=== PATIENT | male | born 1980 | race African-American/Black ===

== ENCOUNTER 2018-01-20 11:04 | Inpatient (IN) | payer OTHER ==
[2018-01-20 12:40] VITALS: BMI 23.0
--- NOTE | 2018-01-20 14:53 | HP ---
CIWA Score - CIWA Score Nausea/Vomitin Muscle Tremors: 3 Anxiety: 3 Agitation: 3 Paroxysmal Sweats: 1-Minimal Palms Moist Orientation: 0-Oriented Tacttile Disturbances: 1-Very Mild Itch/Numbness Auditory Disturbances: 1-Very Mild Visual Disturbances: 0-None Headache: 2-Mild CIWA-Ar Total Score: 17 Admission ROS [facility] - HPI Chief Complaint: i need help to stop drinking alcohol,marijuana,and methamphetamine Allergies/Adverse Reactions: Allergies Allergy/AdvReac Type Severity Reaction Status Date / Time No Known Allergies Allergy Verified 01/20/18 15:00 History of Present Illness: this 37 years old male with alcohol,marijuana and methamphetamine dependene, seeking detox,withdrawal symptom,last detox [facility] 07/18/17 to 07/22/17 hiv since 2002 weight loss nicotine dependence longest period of sobriety 2 years - Ebola screening Have you traveled outside of the country in the last 21 days: No (N) Have you had contact with anyone from an Ebola affected area: No Have you been sick,other than usual withdrawal symptoms: No Do you have a fever: No - Review of Systems Constitutional: Loss of Appetite, Malaise, Night Sweats, Changes in sleep, Weakness, Unintentional Wgt. Loss EENT: reports: Nose Congestion Respiratory: reports: No Symptoms reported Cardiac: reports: No Symptoms Reported GI: reports: Nausea, Poor Appetite, Abdominal cramping : reports: No Symptoms Reported Musculoskeletal: reports: Back Pain, Muscle Pain Integumentary: reports: Dryness Neuro: reports: Headache, Tremors Endocrine: reports: No Symptoms Reported Hematology: reports: No Symptoms Reported Psychiatric: reports: No Sypmtoms Reported, Judgement Intact, Mood/Affect Appropiate, Orientated x3 Patient History - Patient Medical History Hx Anemia: No Hx Asthma: No Hx Chronic Obstructive Pulmonary Disease (COPD): No Hx Cancer: No Hx Cardiac Disorders: No Hx Hypertension: No Hx Hypercholesterolemia: No Hx Pacemaker: No HX Cerebrovascular Accident: No Hx Seizures: No Hx Diabetes: No Hx Gastrointestinal Disorders: No Hx Liver Disease: No Hx Genitourinary Disorders: No Hx Sexually Transmitted Disorders: No Hx Renal Disease (ESRD): No Hx Thyroid Disease: No Hx Human Immunodeficiency Virus (HIV): Yes (DIAGNOSED IN 2002) Hx Hepatitis C: No Hx Depression: No Hx Suicide Attempt: No Hx Bipolar Disorder: No Hx Schizophrenia: No Other Medical History: anxiety,depression,insomnia - Patient Surgical History Past Surgical History: No Hx Neurologic Surgery: No Hx Cataract Extraction: No Hx Cardiac Surgery: No Hx Lung Surgery: No Hx Breast Surgery: No Hx Breast Biopsy: No Hx Abdominal Surgery: No Hx Appendectomy: No Hx Cholecystectomy: No Hx Genitourinary Surgery: No Hx Section: No Hx Orthopedic Surgery: No Anesthesia Reaction: No - PPD History Date: 07/20/17 Results: 0 mm PPD to be Administered?: No - Smoking Cessation Smoking history: Current every day smoker Have you smoked in the past 12 months: Yes Aproximately how many cigarettes per day: 20 Cigars Per Day: 0 Hx Chewing Tobacco Use: No Initiated information on smoking cessation: Yes 'Breaking Loose' booklet given: 01/20/18 - Substance & Tx. History Hx Alcohol Use: Yes Hx Substance Use: Yes Substance Use Type: Alcohol, Marijuana Hx Substance Use Treatment: Yes ([facility] 07/18/17 to 07/22/17) - Substances Abused Alcohol Route: Oral Frequency: Daily Amount used: 1 PINT VODKA, 2 40 OUNCES BEER Age of first use: 14 Date of Last Use: 01/20/18 Marijuana/Hashish Route: Smoking Frequency: 1-2 times per week Amount used: $10 Age of first use: 14 Date of Last Use: 01/19/18 Methamphetamine Route: Smoking Frequency: 3-6 times per week Amount used: $100 PER DAY Age of first use: 37 Date of Last Use: 01/10/18 Family Disease History - Family Disease History Family Disease History: Other: Father (alcohol), Mother (alcohol) Admission Physical Exam [facility] - Vital Signs Vital Signs: Vital Signs - 24 hr 01/20/18 12:38 Temperature 98.2 F Pulse Rate 92 H Respiratory 18 Rate Blood Pressure 141/74 - Physical General Appearance: Yes: Moderate Distress, Tremorous, Irritable, Sweating, Anxious HEENTM: Yes: Normal ENT Inspection, CORY, Pharynx Normal Respiratory: Yes: Lungs Clear, Normal Breath Sounds, No Respiratory Distress Neck: Yes: Within Normal Limits, Supple, Trachea in good position Breast: Yes: Within Normal Limits Cardiology: Yes: Within Normal Limits, Regular Rhythm, Regular Rate, S1, S2 Genitourinary: Yes: Within Normal Limits Back: Yes: Muscle Spasm Extremities: Yes: Within Normal Limits, Normal Range of Motion, Tremors Neurological: Yes: dialysis rn II-XII NML intact, Fully Oriented, Alert, Motor Strength 5/5 Integumentary: Yes: Dry Lymphatic: Yes: Within Normal Limits - Diagnostic (1) Alcohol dependence with uncomplicated withdrawal Current Visit: Yes Status: Acute (2) HIV disease Current Visit: Yes Status: Chronic (3) Nicotine dependence Current Visit: Yes Status: Chronic Qualifiers: Nicotine product type: cigarettes Substance use status: uncomplicated Qualified Code(s): F17.210 - Nicotine dependence, cigarettes, uncomplicated (4) Weight loss Current Visit: Yes Status: Chronic (5) Cannabis dependence Current Visit: Yes Status: Acute (6) Methamphetamine abuse Current Visit: Yes Status: Acute (7) Insomnia secondary to depression with anxiety Current Visit: Yes Status: Acute Cleared for Admission [facility] - Detox or Rehab [facility] Level of Care: Medically Managed Detox Regimen/Protocol: Librium S Breath Alcohol Content Breath Alcohol Content: 0.015 Urine Drug Screen - Results Drug Screen Negative: Yes
[2018-01-20] MEDS ORDERED: IBUPROFEN 400 MG TABLET (FP) PO PRN (15:01)
[2018-01-20] MEDS ORDERED: guaiFENesin/D-METHORPHAN HB 10 ML UNIT-DOSE CUPS PO PRN (15:01)
[2018-01-20] MEDS ORDERED: P-EPHED 60MG/TRIPROLIDI 2.5MG TABLET PO PRN (15:01)
[2018-01-20] MEDS ORDERED: LOPERAMIDE HCL 2 MG CAPSULE PO PRN (15:01)
[2018-01-20] MEDS ORDERED: hydrOXYzine PAMOATE 50 MG CAPSULE (FP) PO PRN (15:01)
[2018-01-20] MEDS ORDERED: chlordiazePOXIDE HCL 25 MG CAPSULE PO PRN (15:01)
[2018-01-20] MEDS ORDERED: MENTHOL/PHENOL 1 EACH UD MM PRN (15:01)
[2018-01-20] MEDS ORDERED: ACETAMINOPHEN 325 MG TABLET (FP) PO PRN (15:01)
[2018-01-20] MEDS ORDERED: MAGNESIUM CITRATE 300 ML BOTTLE PO PRN (15:01)
[2018-01-20] MEDS ORDERED: chlordiazePOXIDE HCL 25 MG CAPSULE PO ONE (15:25)
[2018-01-20] MEDS: chlordiazePOXIDE HCL 25 MG CAPSULE PO SCH ×2 (17:36→22:12)
[2018-01-20 19:41] LABS: URINE APPEARANCE CLEAR; URINE BILIRUBIN NEGATIVE (<2.0 mg/dL); URINE COLOR LTYELLOW; URINE GLUCOSE (UA) NEGATIVE (NEGATIVE); URINE KETONE NEGATIVE (NEGATIVE); URINE LEUK ESTERASE NEGATIVE (NEGATIVE); URINE NITRITE NEGATIVE (NEGATIVE); URINE PROTEIN NEGATIVE (NEGATIVE); URINE UROBILINOGEN NEGATIVE mg/dL (0.2-1.0)
[2018-01-20] MEDS ORDERED: MELATONIN 5 MG TABLETS PO PRN (22:00)
[2018-01-20] MEDS: THIAMINE HCL 100 MG TABLET (FP) PO SCH (22:12)
[2018-01-21] MEDS: chlordiazePOXIDE HCL 25 MG CAPSULE PO SCH ×4 (06:19→22:25)
[2018-01-21 10:44] LABS: HEMATOCRIT 36.6 % (35.4-49); HEMOGLOBIN 12.1 GM/dL (11.7-16.9); MCH 29.7 pg (25.7-33.7); MCHC 33.2 g/dl (32.0-35.9); MEAN CELL VOLUME 89.5 fl (80-96); MEAN PLT VOLUME 8.9 fl (7.5-11.1); PLATELET COUNT 193 K/MM3 (134-434); RBC 4.08 M/mm3 (4.00-5.60); RDW 15.3 % (11.9-15.9); WHITE BLOOD COUNT 4.3 K/mm3 (4.0-10.0)
[2018-01-21 10:51] LABS: CHLORIDE 106 mmol/L (98-107); POTASSIUM 4.3 mmol/L (3.5-5.1); SODIUM 141 mmol/L (136-145)
[2018-01-21] MEDS: PRENATAL VITAMINS W/ FOLIC ACID TABLET (FP) PO SCH (10:53)
[2018-01-21 11:01] LABS: ALBUMIN 2.9 g/dl (3.4-5.0); ALK PHOS 66 U/L (45-117); ANION GAP 2 (8-16); BILIRUBIN,TOTAL 0.4 mg/dL (0.2-1.0); BLOOD UREA NITROGEN 12 mg/dL (7-18); CALCIUM 8.5 mg/dL (8.5-10.1); CO2 33 mmol/L (21-32); CREATININE 1.1 mg/dL (0.7-1.3); GLUCOSE,RANDOM 84 mg/dL (74-106); SGOT/AST 27 U/L (15-37); SGPT/ALT 30 U/L (12-78); TOT PROT 7.4 g/dl (6.4-8.2)
--- NOTE | 2018-01-21 11:27 | CONSULT ---
[facility] Psychiatric Consult - Data Date of interview: 01/21/18 Admission source: [facility] Identifying data: Readmission to [facility] for this 37 y/o AA male seeking detox treatment on for alcohol,cannabis and methamphetamine dependence.Patient is single without children,domiciled,unemployed and supported on Public Assistance. Substance Abuse History: Confirmed by patient in this interview.Details in current [facility] report as follows : Smoking history: Current every day smoker. Have you smoked in the past 12 months: Yes. Aproximately how many cigarettes per day: 20. Cigars Per Day: 0. Hx Chewing Tobacco Use: No. Initiated information on smoking cessation: Yes. 'Breaking Loose' booklet given: . - Substance & Tx. History. Hx Alcohol Use: Yes. Hx Substance Use: Yes. Substance Use Type: Alcohol, Marijuana. Hx Substance Use Treatment: Yes ([facility] 07/18/17 to 07/22/17). - Substances Abused. Alcohol. Route: Oral. Frequency: Daily. Amount used: 1 PINT VODKA, 2 40 OUNCES BEER. Age of first use: 14. Date of Last Use: 01/20/18. Marijuana/Hashish. Route: Smoking. Frequency: 1-2 times per week. Amount used: $10. Age of first use: 14. Date of Last Use: 01/19/18. Methamphetamine. Route: Smoking. Frequency: 3-6 times per week. Amount used: $100 PER DAY. Age of first use: 37. Date of Last Use: 01/10/18 Medical History: HIV infection since 2002 (not on HAART medications). Psychiatric History: Patient denies. Physical/Sexual Abuse/Trauma History: Patient denies. Additional Comment: Drug Screen is negative.Noted. Mental Status Exam - Mental Status Exam Alert and Oriented to: Time, Place, Person Cognitive Function: Good Patient Appearance: Well Groomed Mood: Hopeful, Euthymic Affect: Appropriate, Normal Range Patient Behavior: Appropriate, Cooperative Speech Pattern: Clear, Appropriate Voice Loudness: Normal Thought Process: Intact, Goal Oriented Thought Disorder: Not Present Hallucinations: Denies Suicidal Ideation: Denies Homicidal Ideation: Denies Insight/Judgement: Poor Sleep: Poorly, Difficulty falling asleep Appetite: Good Muscle strength/Tone: Normal Gait/Station: Normal Psychiatric Findings - Problem List ([place] 1, 2,3) (1) Alcohol dependence with uncomplicated withdrawal Current Visit: Yes Status: Acute (2) Insomnia Current Visit: Yes Status: Acute - Initial Treatment Plan Initial Treatment Plan: Psychoeducation.Sleep hygiene.Detoxification in effect.Ambien 10 mg po hs prn.Patient is made aware of the risk of parasomnias.Consent (verbal) given.Observation.
[2018-01-21 12:47] LABS: RPR REACTIVE 1:8 (NONREACTIVE)
[2018-01-21 15:38] LABS: TREPONEMA ANTIBODY REACTIVE (NONREACTIVE)
[2018-01-21] MEDS: MAG HYDROX/AL HYDROX/SIMETH 30 ML UNIT-DOSE CUP PO PRN ×2 (16:03→22:34)
--- NOTE | 2018-01-21 19:55 | PN ---
[facility] CIWA - CIWA Score Nausea/Vomitin-No Nausea/No Vomiting Muscle Tremors: 3 Anxiety: 3 Agitation: 2 Paroxysmal Sweats: No Perspiration Orientation: 0-Oriented Tacttile Disturbances: 3-Moderate Itch/Numb/Burn Auditory Disturbances: 2-Mild Harshness/Frighten Visual Disturbances: 3-Moderate Sensitivity Headache: 0-None Present CIWA-Ar Total Score: 16 S Progress Note (SOAP) Subjective: Constipation, Tremors, Body Aches, Fatigue. Objective: PATIENT A & O X 3, OBSERVED AMBULATING ON UNIT. NO ACUTE DISTRESS. 01/21/18 19:53 Vital Signs Temperature 96.7 F L 01/21/18 13:29 Pulse Rate 80 01/21/18 13:29 Respiratory Rate 18 01/21/18 13:29 Blood Pressure 109/69 01/21/18 13:29 O2 Sat by Pulse Oximetry (%) Laboratory Tests 01/20/18 01/21/18 01/21/18 18:00 07:50 07:50 WBC 4.3 RBC 4.08 Hgb 12.1 D Hct 36.6 D MCV 89.5 MCH 29.7 MCHC 33.2 RDW 15.3 D Plt Count 193 D MPV 8.9 Sodium 141 Potassium 4.3 Chloride 106 Carbon Dioxide 33 H Anion Gap 2 L BUN 12 Creatinine 1.1 D Creat Clearance w eGFR > 60 Random Glucose 84 Calcium 8.5 Total Bilirubin 0.4 AST 27 D ALT 30 D Alkaline Phosphatase 66 Total Protein 7.4 Albumin 2.9 L D Urine Color Ltyellow Urine Appearance Clear Urine pH 6.0 Ur Specific [place] 1.017 Urine Protein Negative Urine Glucose (UA) Negative Urine Ketones Negative Urine Blood Negative Urine Nitrite Negative Urine Bilirubin Negative Urine Urobilinogen Negative Ur Leukocyte Esterase Negative RPR Titer T.pallidum Ab (MHA) 01/21/18 07:50 WBC RBC Hgb Hct MCV MCH MCHC RDW Plt Count MPV Sodium Potassium Chloride Carbon Dioxide Anion Gap BUN Creatinine Creat Clearance w eGFR Random Glucose Calcium Total Bilirubin AST ALT Alkaline Phosphatase Total Protein Albumin Urine Color Urine Appearance Urine pH Ur Specific [place] Urine Protein Urine Glucose (UA) Urine Ketones Urine Blood Urine Nitrite Urine Bilirubin Urine Urobilinogen Ur Leukocyte Esterase RPR Titer Reactive 1:8 H D T.pallidum Ab (MHA) Reactive LABS NOTED. Assessment: 01/21/18 19:54 WITHDRAWAL SYMPTOMS. Plan: CONTINUE DETOX.
[2018-01-21] MEDS: ZOLPIDEM TARTRATE 10 MG TABLET (PARK CARE ONLY) PO PRN (22:25)
[2018-01-21] MEDS: THIAMINE HCL 100 MG TABLET (FP) PO SCH (22:25)
[2018-01-22] MEDS: chlordiazePOXIDE HCL 25 MG CAPSULE PO SCH ×2 (06:17→10:25)
[2018-01-22] MEDS: MAGNESIUM HYDROX 2400MG/30ML ORAL SUSPENSION 30 ML CUP PO PRN ×2 (06:40→14:55)
[2018-01-22] MEDS ORDERED: BISACODYL 5 MG TABLET.DR (FP) PO ONE (10:15)
[2018-01-22] MEDS: PRENATAL VITAMINS W/ FOLIC ACID TABLET (FP) PO SCH (10:25)
--- NOTE | 2018-01-22 13:59 | PN ---
[facility] CIWA - CIWA Score Nausea/Vomitin Muscle Tremors: 4-Moderate,w/Arms Extend Anxiety: 3 Agitation: 3 Paroxysmal Sweats: 3 Orientation: 0-Oriented Tacttile Disturbances: 1-Very Mild Itch/Numbness Auditory Disturbances: 0-None Visual Disturbances: 0-None Headache: 1-Very Mild CIWA-Ar Total Score: 18 [facility] Progress Note (SOAP) Subjective: Constipated x 3 days (stated he took MOM without any effect, agreed to take dulcolax instead of citroma), sleeps ok when takes ambien; noted with RPR positive and TPPA reactive. As per patient, he was treated (given 1 injection) on , 01/19/18 at [facility] and instructed to follow up in the STI clinic in 30 days for another shot. Patient denies any symptom of [place]. Objective: 01/22/18 13:59 Last Vital Signs Temp Pulse Resp BP Pulse Ox 96.8 F L 88 18 112/67 01/22/18 13:29 01/22/18 13:29 01/22/18 13:29 01/22/18 13:29 Laboratory Tests 01/20/18 01/21/18 01/21/18 18:00 07:50 07:50 WBC 4.3 RBC 4.08 Hgb 12.1 D Hct 36.6 D MCV 89.5 MCH 29.7 MCHC 33.2 RDW 15.3 D Plt Count 193 D MPV 8.9 Sodium 141 Potassium 4.3 Chloride 106 Carbon Dioxide 33 H Anion Gap 2 L BUN 12 Creatinine 1.1 D Creat Clearance w eGFR > 60 Random Glucose 84 Calcium 8.5 Total Bilirubin 0.4 AST 27 D ALT 30 D Alkaline Phosphatase 66 Total Protein 7.4 Albumin 2.9 L D Urine Color Ltyellow Urine Appearance Clear Urine pH 6.0 Ur Specific [place] 1.017 Urine Protein Negative Urine Glucose (UA) Negative Urine Ketones Negative Urine Blood Negative Urine Nitrite Negative Urine Bilirubin Negative Urine Urobilinogen Negative Ur Leukocyte Esterase Negative RPR Titer T.pallidum Ab (A) 01/21/18 07:50 WBC RBC Hgb Hct MCV MCH MCHC RDW Plt Count MPV Sodium Potassium Chloride Carbon Dioxide Anion Gap BUN Creatinine Creat Clearance w eGFR Random Glucose Calcium Total Bilirubin AST ALT Alkaline Phosphatase Total Protein Albumin Urine Color Urine Appearance Urine pH Ur Specific [place] Urine Protein Urine Glucose (UA) Urine Ketones Urine Blood Urine Nitrite Urine Bilirubin Urine Urobilinogen Ur Leukocyte Esterase RPR Titer Reactive 1:8 H D T.pallidum Ab (MHA) Reactive Labs reviewed: noted with acute syphilis (treated at [facility] on 01/19/18 as per patient with f/u appointment in 30 days for second shot in the [facility]I clinic) Assessment: 01/22/18 14:05 Withdrawal symptoms Noted with acute syphilis Plan: Continue detox Encouraged PO hydration (water) Acute syphilis: treated on 01/19/18 at [facility] as per patient
[2018-01-22] MEDS: chlordiazePOXIDE 5 MG CAPSULE PO SCH ×2 (17:23→22:38)
[2018-01-22] MEDS: THIAMINE HCL 100 MG TABLET (FP) PO SCH (22:39)
[2018-01-22] MEDS: ZOLPIDEM TARTRATE 10 MG TABLET (PARK CARE ONLY) PO PRN (22:39)
[2018-01-23] MEDS: chlordiazePOXIDE 5 MG CAPSULE PO SCH ×2 (06:11→10:26)
[2018-01-23] MEDS: PRENATAL VITAMINS W/ FOLIC ACID TABLET (FP) PO SCH (10:26)
[2018-01-23] MEDS: MAG HYDROX/AL HYDROX/SIMETH 30 ML UNIT-DOSE CUP PO PRN (10:41)
--- NOTE | 2018-01-23 16:20 | PN ---
[facility] Progress Note (SOAP) Subjective: Constipation Sleep disturbance Objective: 01/23/18 16:17 A & O x 3 Vital Signs Temperature 96.8 F L 01/23/18 13:55 Pulse Rate 74 01/23/18 13:55 Respiratory Rate 20 01/23/18 13:55 Blood Pressure 107/71 01/23/18 13:55 O2 Sat by Pulse Oximetry (%) Assessment: 01/23/18 16:19 withdrawal sx Plan: continue detox
[2018-01-23] MEDS: chlordiazePOXIDE HCL 10 MG CAPSULE PO SCH ×2 (17:16→22:19)
[2018-01-23] MEDS: THIAMINE HCL 100 MG TABLET (FP) PO SCH (22:19)
[2018-01-23] MEDS: ZOLPIDEM TARTRATE 10 MG TABLET (PARK CARE ONLY) PO PRN (22:21)
--- NOTE | 2018-01-24 00:52 | EKG ---
Test Reason : Blood Pressure : / mmHG Vent. Rate : 081 BPM Atrial Rate : 081 BPM P-R Int : 156 ms QRS Dur : 092 ms QT Int : 378 ms P-R-T Axes : 083 052 047 degrees QTc Int : 439 ms NORMAL SINUS RHYTHM NORMAL ECG WHEN COMPARED WITH ECG OF 18-JUL-2017 15:38, NO SIGNIFICANT CHANGE WAS FOUND Confirmed by NANCY AMADOR MD ([id number]) on 01/24/2018 12:52:17 AM Referred By: Confirmed By:NANCY AMADOR MD
[2018-01-24 06:15] VITALS: BP 104/61; PULSE 69; TEMP 96.3
[2018-01-24] MEDS: chlordiazePOXIDE HCL 10 MG CAPSULE PO SCH (06:30)
--- NOTE | 2018-01-24 16:56 | PN ---
[facility] Progress Note (SOAP) Subjective: Patient denies current Detox symptoms and reports that he feels well overall. Objective: PATIENT A & O X 3, OBSERVED AMBULATING ON UNIT. NO ACUTE DISTRESS. 01/24/18 16:55 Vital Signs Temperature 96.3 F L 01/24/18 06:15 Pulse Rate 69 01/24/18 06:15 Respiratory Rate 18 01/24/18 06:15 Blood Pressure 104/61 01/24/18 06:15 O2 Sat by Pulse Oximetry (%) Laboratory Tests 01/20/18 01/21/18 01/21/18 18:00 07:50 07:50 WBC 4.3 RBC 4.08 Hgb 12.1 D Hct 36.6 D MCV 89.5 MCH 29.7 MCHC 33.2 RDW 15.3 D Plt Count 193 D MPV 8.9 Sodium 141 Potassium 4.3 Chloride 106 Carbon Dioxide 33 H Anion Gap 2 L BUN 12 Creatinine 1.1 D Creat Clearance w eGFR > 60 Random Glucose 84 Calcium 8.5 Total Bilirubin 0.4 AST 27 D ALT 30 D Alkaline Phosphatase 66 Total Protein 7.4 Albumin 2.9 L D Urine Color Ltyellow Urine Appearance Clear Urine pH 6.0 Ur Specific [place] 1.017 Urine Protein Negative Urine Glucose (UA) Negative Urine Ketones Negative Urine Blood Negative Urine Nitrite Negative Urine Bilirubin Negative Urine Urobilinogen Negative Ur Leukocyte Esterase Negative RPR Titer T.pallidum Ab (MHA) 01/21/18 07:50 WBC RBC Hgb Hct MCV MCH MCHC RDW Plt Count MPV Sodium Potassium Chloride Carbon Dioxide Anion Gap BUN Creatinine Creat Clearance w eGFR Random Glucose Calcium Total Bilirubin AST ALT Alkaline Phosphatase Total Protein Albumin Urine Color Urine Appearance Urine pH Ur Specific [place] Urine Protein Urine Glucose (UA) Urine Ketones Urine Blood Urine Nitrite Urine Bilirubin Urine Urobilinogen Ur Leukocyte Esterase RPR Titer Reactive 1:8 H D T.pallidum Ab (MHA) Reactive LABS NOTED. Assessment: 01/24/18 16:55 COMPLETION OF DETOX REGIMEN. Plan: PATIENT SCHEDULED FOR DISCHARGE FROM DETOX UNIT TODAY.
--- NOTE | 2018-01-24 16:57 | DS ---
[facility] Detox Discharge Summary Admission Date: 01/20/18 Discharge Date: 01/24/18 - History Present History: Alcohol Dependence, Cannabis Dependence Additional Comments: PATIENT ADVISED TO CONSIDER LOCAL 12-STEP / NA / AA OUTPATIENT SUPPORT GROUPS FOR AFTERCARE. PATIENT ALSO ADVISED TO FOLLOW-UP AT [facility] ([place], [place] FOR FOLLOW-UP MEDICAL CARE/ EVALUATION OF TREATMENT FOR SYPHILLIS (PATIENT REPORTS THAT HE STARTED TREATMENT LAST WEEK). PATIENT WAS DISCHARGED FORM DETOX UNIT IN STABLE MEDICAL CONDITION. Pertinent Past History: Nicotine Dependence, HIV, Insomnia, Depression, Anxiety, Weight Loss. - Physical Exam Results Vital Signs: Vital Signs Temperature 96.3 F L 01/24/18 06:15 Pulse Rate 69 01/24/18 06:15 Respiratory Rate 18 01/24/18 06:15 Blood Pressure 104/61 01/24/18 06:15 O2 Sat by Pulse Oximetry (%) Pertinent Admission Physical Exam Findings: WITHDRAWAL SYMPTOMS. Laboratory Tests 01/20/18 01/21/18 01/21/18 18:00 07:50 07:50 WBC 4.3 RBC 4.08 Hgb 12.1 D Hct 36.6 D MCV 89.5 MCH 29.7 MCHC 33.2 RDW 15.3 D Plt Count 193 D MPV 8.9 Sodium 141 Potassium 4.3 Chloride 106 Carbon Dioxide 33 H Anion Gap 2 L BUN 12 Creatinine 1.1 D Creat Clearance w eGFR > 60 Random Glucose 84 Calcium 8.5 Total Bilirubin 0.4 AST 27 D ALT 30 D Alkaline Phosphatase 66 Total Protein 7.4 Albumin 2.9 L D Urine Color Ltyellow Urine Appearance Clear Urine pH 6.0 Ur Specific [place] 1.017 Urine Protein Negative Urine Glucose (UA) Negative Urine Ketones Negative Urine Blood Negative Urine Nitrite Negative Urine Bilirubin Negative Urine Urobilinogen Negative Ur Leukocyte Esterase Negative RPR Titer T.pallidum Ab (MHA) 01/21/18 07:50 WBC RBC Hgb Hct MCV MCH MCHC RDW Plt Count MPV Sodium Potassium Chloride Carbon Dioxide Anion Gap BUN Creatinine Creat Clearance w eGFR Random Glucose Calcium Total Bilirubin AST ALT Alkaline Phosphatase Total Protein Albumin Urine Color Urine Appearance Urine pH Ur Specific [place] Urine Protein Urine Glucose (UA) Urine Ketones Urine Blood Urine Nitrite Urine Bilirubin Urine Urobilinogen Ur Leukocyte Esterase RPR Titer Reactive 1:8 H D T.pallidum Ab (MHA) Reactive LABS NOTED. - Treatment Hospital Course: Detox Protocol Followed, Detoxed Safely, Responded well, Discharged Condition Good Patient has Accepted a Rehab Referral to: PT ADVISED TO CONSIDER LOCAL 12-STEP/ NA/AA OUTPAITENT SUPPORT GROUPS. - Medication Discharge Medications: Ambulatory Orders NK [No Known Home Medication] 07/18/17 - Diagnosis (1) Alcohol dependence with uncomplicated withdrawal Status: Acute (2) Cannabis dependence Status: Acute (3) Insomnia secondary to depression with anxiety Status: Acute (4) Methamphetamine abuse Status: Acute (5) Nicotine dependence Status: Chronic Qualifiers: Nicotine product type: cigarettes Substance use status: uncomplicated Qualified Code(s): F17.210 - Nicotine dependence, cigarettes, uncomplicated (6) Weight loss Status: Chronic (7) HIV disease Status: Chronic (8) Insomnia Status: Acute Qualifiers: Insomnia type: unspecified Qualified Code(s): G47.00 - Insomnia, unspecified - AMA Did Patient Leave Against Medical Advice: No
== END 2018-01-24 09:05 | disposition home or self-care (01) | DRG 775 ==
LOC: YASAS 11:04 → Y3N 14:59
PROVIDERS: ADMIT Internal Medicine; ATTEND Internal Medicine
PROC: HZ2ZZZZ Detoxification Services for Substance Abuse Treatment (ICD-10-PCS; principal; 2018-01-20)
DX: F10.230 Alcohol dependence with withdrawal, uncomplicated (principal); F12.20 Cannabis dependence, uncomplicated; F15.20 Other stimulant dependence, uncomplicated; F17.210 Nicotine dependence, cigarettes, uncomplicated; F51.05 Insomnia due to other mental disorder; Z21 Asymptomatic human immunodeficiency virus [HIV] infection status; R63.4 Abnormal weight loss; Z68.23 Body mass index [BMI] 23.0-23.9, adult; Z86.19 Personal history of other infectious and parasitic diseases
CPT/HCPCS: 36415; 80053; 81003; 85027; 86593; 86780; 93005; 93010

== ENCOUNTER 2019-03-06 15:16 | Inpatient (IN) | payer OTHER ==
[2019-03-06 16:47] VITALS: BMI 23.5
--- NOTE | 2019-03-06 20:41 | HP ---
CIWA Score Nausea/Vomitin Muscle Tremors: 3 Anxiety: 2 Agitation: 3 Paroxysmal Sweats: 2 Orientation: 0-Oriented Tacttile Disturbances: 0-None Auditory Disturbances: 0-None Visual Disturbances: 0-None Headache: 1-Very Mild CIWA-Ar Total Score: 13 - Admission Criteria OASAS Guidelines: Admission for Medically Managed Detox: Requires at least one of the followin. CIWA greater than 12 2. Seizures within the past 24 hours 3. Delirium tremens within the past 24 hours 4. Hallucinations within the past 24 hours 5. Acute intervention needed for co occurring medical disorder 6. Acute intervention needed for co occurring psychiatric disorder 7. Severe withdrawal that cannot be handled at a lower level of care (continued vomiting, continued diarrhea, abnormal vital signs) requiring intravenous medication and/or fluids 8. Patient presents the following: CIWA greater than 12 Admission Criteria Met: Admission criteria met Admission ROS [facility] Chief Complaint: detox from alcohol and crystal meth Allergies/Adverse Reactions: Allergies Allergy/AdvReac Type Severity Reaction Status Date / Time No Known Allergies Allergy Verified 03/06/19 16:37 History of Present Illness: 38 yo with HIV, was last here in 2018, says he was doing well and not using illicit drugs when he started a binge with alchol and crystal meth about 2 weeks. Works at [employer]. Pt states has not taken HIV meds for about 2 months- has not seen PCP, does not know VL/CD4. Drinking 40 oz beer/day, no h/o seizures, no h/o DT's crystal meth " a lot": $150/day DUR- no controlled substances; CORETTA- 0, Utox: THX, met - Ebola screening Have you traveled outside of the country in the last 21 days: No Have you had contact with anyone from an Ebola affected area: No - Review of Systems Constitutional: No Symptoms Reported EENT: reports: No Symptoms Reported Respiratory: reports: No Symptoms reported Cardiac: reports: No Symptoms Reported GI: reports: No Symptoms Reported : reports: No Symptoms Reported Musculoskeletal: reports: Muscle Pain, Other (shoulder pain.numbness of L first 3 fingers) Integumentary: reports: No Symptoms Reported Neuro: reports: Other Endocrine: reports: No Symptoms Reported Hematology: reports: No Symptoms Reported Psychiatric: reports: No Sypmtoms Reported Patient History - Patient Medical History Hx Anemia: No Hx Asthma: No Hx Chronic Obstructive Pulmonary Disease (COPD): No Hx Cancer: No Hx Cardiac Disorders: No Hx Hypertension: No Hx Hypercholesterolemia: No Hx Pacemaker: No HX Cerebrovascular Accident: No Hx Seizures: No Hx Diabetes: No Hx Gastrointestinal Disorders: No Hx Liver Disease: No Hx Genitourinary Disorders: No Hx Sexually Transmitted Disorders: No Hx Renal Disease (ESRD): No Hx Thyroid Disease: No Hx Human Immunodeficiency Virus (HIV): Yes (DIAGNOSED IN 2002) Hx Hepatitis C: No Hx Depression: No Hx Suicide Attempt: No Hx Bipolar Disorder: No Hx Schizophrenia: No - Patient Surgical History Past Surgical History: No Hx Neurologic Surgery: No Hx Cataract Extraction: No Hx Cardiac Surgery: No Hx Lung Surgery: No Hx Breast Surgery: No Hx Breast Biopsy: No Hx Abdominal Surgery: No Hx Appendectomy: No Hx Cholecystectomy: No Hx Genitourinary Surgery: No Hx Section: No Hx Orthopedic Surgery: No Anesthesia Reaction: No - PPD History Date: 07/20/17 Results: 0 mm - Smoking Cessation Smoking history: Current every day smoker Have you smoked in the past 12 months: Yes Aproximately how many cigarettes per day: 10 Cigars Per Day: 0 Hx Chewing Tobacco Use: No Initiated information on smoking cessation: Yes 'Breaking Loose' booklet given: 03/06/19 - Substances abused Alcohol Substance route: Oral Frequency: Daily Amount used: 40 ounces of beer/ 2 nips of liqour Age of first use: 14 Date of last use: 03/06/19 Methamphetamine Substance route: Smoking Frequency: Daily Amount used: 100 dollars Age of first use: 27 Date of last use: 03/06/19 Family Disease History - Family Disease History Family Disease History: Other: Father (alcohol), Mother (alcohol) Admission Physical Exam [facility] - Vital Signs Vital Signs: Vital Signs - 24 hr 03/06/19 16:41 Temperature 98.4 F Pulse Rate 94 H Respiratory 18 Rate Blood Pressure 126/73 - Physical General Appearance: Yes: Mild Distress, Irritable HEENTM: Yes: Within Normal Limits, Hearing grossly Normal, Normal Voice Respiratory: Yes: Lungs Clear Neck: Yes: Within Normal Limits, No masses,lesions,Nodules Cardiology: Yes: Within Normal Limits, Regular Rhythm, Regular Rate Abdominal: Yes: Within Normal Limits, Normal Bowel Sounds, Non Tender Back: Yes: Within Normal Limits Musculoskeletal: Yes: Within Normal Limits, full range of Motion Extremities: Yes: Within Normal Limits, Normal Capillary Refill, Normal Inspection Neurological: Yes: Within Normal Limits, magneto repairer II-XII NML intact, Fully Oriented, Motor Strength 5/5 Integumentary: Yes: Within Normal Limits, Normal Color Lymphatic: Yes: Within Normal Limits - Diagnostic (1) Alcohol dependence with uncomplicated withdrawal Current Visit: No Status: Acute (2) Methamphetamine abuse Current Visit: No Status: Acute (3) HIV disease Current Visit: No Status: Chronic (4) Nicotine dependence Current Visit: No Status: Chronic Qualifiers: Nicotine product type: cigarettes Substance use status: uncomplicated Qualified Code(s): F17.210 - Nicotine dependence, cigarettes, uncomplicated Breathalyzer - Breathalyzer Breathalyzer: 0 Urine Drug Screen - Test Device Lot number: [id number] Expiration date: 11/02/20 - Control Is test valid?: Yes - Results Drug screen NEGATIVE: No Urine drug screen results: THC-Marijuana, MET-Methamphetamine, AMP-Amphetamines Inpatient Rehab Admission - Rehab Decision to Admit Inpatient rehab admission?: No
[2019-03-06] MEDS ORDERED: hydrOXYzine PAMOATE 25 MG CAPSULE (FP) PO PRN (21:01)
[2019-03-06] MEDS ORDERED: MAGNESIUM HYDROX 2400MG/30ML ORAL SUSPENSION 30 ML CUP PO PRN (21:01)
[2019-03-06] MEDS ORDERED: IBUPROFEN 400 MG TABLET (FP) PO PRN (21:01)
[2019-03-06] MEDS ORDERED: ACETAMINOPHEN 325 MG TABLET (FP) PO PRN ×2 (21:01)
[2019-03-06] MEDS ORDERED: MAGNESIUM CITRATE 300 ML BOTTLE PO PRN (21:01)
[2019-03-06] MEDS ORDERED: METHOCARBAMOL 500 MG TABLET PO PRN (21:01)
[2019-03-06] MEDS ORDERED: MENTHOL/PHENOL 1 EACH UD MM PRN (21:01)
[2019-03-06] MEDS ORDERED: MAG HYDROX/AL HYDROX/SIMETH 30 ML UNIT-DOSE CUP PO PRN (21:01)
[2019-03-06] MEDS ORDERED: MELATONIN 5 MG TABLETS PO PRN (21:01)
[2019-03-06] MEDS ORDERED: BISMUTH SUBSALICYLATE 524 MG/30 ML UD PO PRN (21:01)
[2019-03-06] MEDS ORDERED: chlordiazePOXIDE HCL 10 MG CAPSULE PO PRN (21:05)
[2019-03-06] MEDS: chlordiazePOXIDE HCL 25 MG CAPSULE PO SCH (23:21)
[2019-03-06] MEDS: QUEtiapine FUMARATE 100 MG TABLET (FP) PO SCH (23:21)
[2019-03-06] MEDS: THIAMINE HCL 100 MG TABLET (FP) PO SCH (23:21)
[2019-03-07] MEDS: chlordiazePOXIDE HCL 25 MG CAPSULE PO SCH ×3 (05:24→22:12)
[2019-03-07 08:55] LABS: PH,URINE 5.5 (5.0-8.0); URINE APPEARANCE TURBID; URINE BILIRUBIN NEGATIVE (NEGATIVE); URINE COLOR YELLOW; URINE GLUCOSE (UA) NEGATIVE (NEGATIVE); URINE KETONE TRACE (NEGATIVE); URINE LEUK ESTERASE NEGATIVE (NEGATIVE); URINE NITRITE NEGATIVE (NEGATIVE); URINE PROTEIN NEGATIVE (NEGATIVE); URINE UROBILINOGEN 0.2 mg/dL (0.2-1.0)
[2019-03-07 10:10] LABS: HEMATOCRIT 36.8 % (35.4-49); HEMOGLOBIN 12.3 GM/dL (11.7-16.9); MCHC 33.4 g/dl (32.0-35.9); MEAN CELL VOLUME 95.7 fl (80-96); MEAN PLT VOLUME 8.8 fl (7.5-11.1); PLATELET COUNT 152 K/MM3 (134-434); RBC 3.85 M/mm3 (4.00-5.60); RDW 13.5 % (11.9-15.9); WHITE BLOOD COUNT 3.6 K/mm3 (4.0-10.0)
[2019-03-07 10:13] LABS: ALBUMIN 3.1 g/dl (3.4-5.0); BILIRUBIN,TOTAL 0.2 mg/dL (0.2-1); BLOOD UREA NITROGEN 10.6 mg/dL (7-18); CALCIUM 8.3 mg/dL (8.5-10.1); CREATININE 1.1 mg/dL (0.55-1.3); POTASSIUM 3.3 mmol/L (3.5-5.1); TOT PROT 5.6 g/dl (6.4-8.2)
[2019-03-07] MEDS: PRENATAL VITAMINS W/ FOLIC ACID TABLET (FP) PO SCH (10:31)
[2019-03-07 12:12] LABS: RPR REACTIVE 1:8 (NONREACTIVE)
[2019-03-07 12:13] LABS: TREPONEMA ANTIBODY PREVIOUSLY REACTIVE (NONREACTIVE)
--- NOTE | 2019-03-07 15:06 | PN ---
S CIWA - CIWA Score Nausea/Vomitin-No Nausea/No Vomiting Muscle Tremors: 2 Anxiety: 3 Agitation: 0-Normal Activity Paroxysmal Sweats: 3 Orientation: 0-Oriented Tacttile Disturbances: 2-Mild Itch/Numbness/Burn Auditory Disturbances: 2-Mild Harshness/Frighten Visual Disturbances: 2-Mild Sensitivity Headache: 0-None Present CIWA-Ar Total Score: 14 S Progress Note (SOAP) Subjective: Fatigue, Anxious, Interrupted Sleep. Objective: PATIENT A & O X 3, OBSERVED AMBULATING ON UNIT UNASSISTED. IN NO ACUTE DISTRESS. 03/07/19 15:07 Vital Signs Temperature 96.2 F L 03/07/19 13:12 Pulse Rate 88 03/07/19 13:12 Respiratory Rate 18 03/07/19 13:12 Blood Pressure 111/68 03/07/19 13:12 O2 Sat by Pulse Oximetry (%) Laboratory Tests 03/07/19 03/07/19 03/07/19 00:00 07:50 07:50 WBC 3.6 L RBC 3.85 L Hgb 12.3 Hct 36.8 MCV 95.7 MCH 32.0 MCHC 33.4 RDW 13.5 D Plt Count 152 D MPV 8.8 Sodium 145 Potassium 3.3 L Chloride 109 H Carbon Dioxide 30 Anion Gap 6 L BUN 10.6 Creatinine 1.1 Est GFR (CKD-EPI)AfAm 97.49 Est GFR (CKD-EPI)NonAf 84.12 Random Glucose 117 H Calcium 8.3 L Total Bilirubin 0.2 AST 18 ALT 21 Alkaline Phosphatase 55 Total Protein 5.6 L Albumin 3.1 L Urine Color Yellow Urine Appearance Turbid Urine pH 5.5 Ur Specific [place] 1.031 Urine Protein Negative Urine Glucose (UA) Negative Urine Ketones Trace H Urine Blood Negative Urine Nitrite Negative Urine Bilirubin Negative Urine Urobilinogen 0.2 Ur Leukocyte Esterase Negative RPR Titer T.pallidum Ab ([facility]) 03/07/19 07:50 WBC RBC Hgb Hct MCV MCH MCHC RDW Plt Count MPV Sodium Potassium Chloride Carbon Dioxide Anion Gap BUN Creatinine Est GFR (CKD-EPI)AfAm Est GFR (CKD-EPI)NonAf Random Glucose Calcium Total Bilirubin AST ALT Alkaline Phosphatase Total Protein Albumin Urine Color Urine Appearance Urine pH Ur Specific [place] Urine Protein Urine Glucose (UA) Urine Ketones Urine Blood Urine Nitrite Urine Bilirubin Urine Urobilinogen Ur Leukocyte Esterase RPR Titer Reactive 1:8 H T.pallidum Ab ([facility]) Previously reactive LABS NOTED. ADMISSION RPR RESULT NOTED: REACTIVE 1:8 (MHATP: PREVIOUSLY REACTIVE). PATIENT REPORTS THAT HE COMPLETED A FULL COURSE OF TREATMENT FOR SYPHILIS APPROX. 6 MONTHS AGO. PATIENT ADVISED TO FOLLOW-UP WITH AIR TWIST OPERATOR AFTER DISCHARGE FROM DETOX FOR FURTHER EVALUATION FOR THIS. PATIENT VERBALIZED UNDERSTANDING OF RECOMMENDATION. 03/07/19 15:12 Assessment: 03/07/19 15:11 WITHDRAWAL SYMPTOMS. LEUKOPENIA. HYPOKALEMIA. Plan: CONTINUE DETOX. INCREASE DAILY PO WATER INTAKE. K-DUR, 40 MEQ PO X 1 DOSE NOW, THEN 20 MEQ PO BID TOMORROW. RE-CHECK K LEVEL ON 03/09/2019.
[2019-03-07] MEDS ORDERED: POTASSIUM CHLORIDE TABS 20 MEQ TABLET.ER (FP) PO ONE (15:30)
[2019-03-07] MEDS: POTASSIUM CHLORIDE TABS 20 MEQ TABLET.ER (FP) PO SCH (18:37)
[2019-03-07] MEDS: QUEtiapine FUMARATE 100 MG TABLET (FP) PO SCH (22:12)
[2019-03-07] MEDS: THIAMINE HCL 100 MG TABLET (FP) PO SCH (22:12)
[2019-03-08] MEDS: chlordiazePOXIDE 5 MG CAPSULE PO SCH ×3 (06:10→22:10)
[2019-03-08] MEDS: PRENATAL VITAMINS W/ FOLIC ACID TABLET (FP) PO SCH (10:55)
[2019-03-08] MEDS: POTASSIUM CHLORIDE TABS 20 MEQ TABLET.ER (FP) PO SCH (10:55)
--- NOTE | 2019-03-08 12:01 | PN ---
[facility] CIWA - CIWA Score Nausea/Vomitin-Mild Nausea/No Vomiting Muscle Tremors: 3 Anxiety: 2 Agitation: 2 Paroxysmal Sweats: 1-Minimal Palms Moist Orientation: 0-Oriented Tacttile Disturbances: 0-None Auditory Disturbances: 0-None Visual Disturbances: 0-None Headache: 1-Very Mild CIWA-Ar Total Score: 10 [facility] Progress Note (SOAP) Subjective: doing well today tolerate food and fluid well less tremor than yesterday Objective: 03/08/19 12:00 Vital Signs Temperature 96.7 F L 03/08/19 09:31 Pulse Rate 64 03/08/19 09:31 Respiratory Rate 18 03/08/19 09:31 Blood Pressure 112/80 03/08/19 09:31 O2 Sat by Pulse Oximetry (%) Laboratory Last Values WBC 3.6 K/mm3 (4.0-10.0) L 03/07/19 07:50 RBC 3.85 M/mm3 (4.00-5.60) L 03/07/19 07:50 Hgb 12.3 GM/dL (11.7-16.9) 03/07/19 07:50 Hct 36.8 % (35.4-49) 03/07/19 07:50 MCV 95.7 fl (80-96) 03/07/19 07:50 MCH 32.0 pg (25.7-33.7) 03/07/19 07:50 MCHC 33.4 g/dl (32.0-35.9) 03/07/19 07:50 RDW 13.5 % (11.9-15.9) D 03/07/19 07:50 Plt Count 152 K/MM3 (134-434) D 03/07/19 07:50 MPV 8.8 fl (7.5-11.1) 03/07/19 07:50 Sodium 145 mmol/L (136-145) 03/07/19 07:50 Potassium 3.3 mmol/L (3.5-5.1) L 03/07/19 07:50 Chloride 109 mmol/L (98-107) H 03/07/19 07:50 Carbon Dioxide 30 mmol/L (21-32) 03/07/19 07:50 Anion Gap 6 MMOL/L (8-16) L 03/07/19 07:50 BUN 10.6 mg/dL (7-18) 03/07/19 07:50 Creatinine 1.1 mg/dL (0.55-1.3) 03/07/19 07:50 Est GFR (CKD-EPI)AfAm 97.49 03/07/19 07:50 Est GFR (CKD-EPI)NonAf 84.12 03/07/19 07:50 Random Glucose 117 mg/dL (74-106) H 03/07/19 07:50 Calcium 8.3 mg/dL (8.5-10.1) L 03/07/19 07:50 Total Bilirubin 0.2 mg/dL (0.2-1) 03/07/19 07:50 AST 18 U/L (15-37) 03/07/19 07:50 ALT 21 U/L (13-61) 03/07/19 07:50 Alkaline Phosphatase 55 U/L (45-117) 03/07/19 07:50 Total Protein 5.6 g/dl (6.4-8.2) L 03/07/19 07:50 Albumin 3.1 g/dl (3.4-5.0) L 03/07/19 07:50 Urine Color Yellow 03/07/19 00:00 Urine Appearance Turbid 03/07/19 00:00 Urine pH 5.5 (5.0-8.0) 03/07/19 00:00 Ur Specific [place] 1.031 (1.010-1.035) 03/07/19 00:00 Urine Protein Negative (NEGATIVE) 03/07/19 00:00 Urine Glucose (UA) Negative (NEGATIVE) 03/07/19 00:00 Urine Ketones Trace (NEGATIVE) H 03/07/19 00:00 Urine Blood Negative (NEGATIVE) 03/07/19 00:00 Urine Nitrite Negative (NEGATIVE) 03/07/19 00:00 Urine Bilirubin Negative (NEGATIVE) 03/07/19 00:00 Urine Urobilinogen 0.2 mg/dL (0.2-1.0) 03/07/19 00:00 Ur Leukocyte Esterase Negative (NEGATIVE) 03/07/19 00:00 RPR Titer Reactive 1:8 (NONREACTIVE) H 03/07/19 07:50 T.pallidum Ab ([facility]) Previously reactive (NONREACTIVE) 03/07/19 07:50 lab noted low K+ continue K+ supplement repeat K+ on 03/09/19 Assessment: 03/08/19 12:03 alcohol withdrawal sx Plan: continue alcohol detox
[2019-03-08] MEDS: THIAMINE HCL 100 MG TABLET (FP) PO SCH (22:09)
[2019-03-08] MEDS: QUEtiapine FUMARATE 100 MG TABLET (FP) PO SCH (22:10)
[2019-03-09] MEDS ORDERED: chlordiazePOXIDE HCL 10 MG CAPSULE PO PRN
[2019-03-09] MEDS ORDERED: chlordiazePOXIDE HCL 10 MG CAPSULE PO SCH (05:00)
[2019-03-09 09:17] VITALS: BP 110/58; PULSE 85; TEMP 96.9
[2019-03-09] MEDS: PRENATAL VITAMINS W/ FOLIC ACID TABLET (FP) PO SCH (10:28)
--- NOTE | 2019-03-09 17:46 | DS ---
[facility] Detox Discharge Summary Admission Date: 03/06/19 Discharge Date: 03/09/19 - History Present History: Alcohol Dependence Additional Comments: PATIENT GOING TO [facility] ([place], [place]) FOR AFTERCARE. PATIENT WAS DISCHARGED FROM DETOX UNIT IN STABLE MEDICAL CONDITION. Pertinent Past History: H.I.V. Methamphetamine Abuse, Nicotine Dependence, Reactive RPR (Patient Received Treatment Approx. 6 months ago), Hypokalemia. - Physical Exam Results Vital Signs: Vital Signs Temperature 96.9 F L 03/09/19 09:16 Pulse Rate 85 03/09/19 09:16 Respiratory Rate 18 03/09/19 09:16 Blood Pressure 110/58 L 03/09/19 09:16 O2 Sat by Pulse Oximetry (%) Pertinent Admission Physical Exam Findings: WITHDRAWAL SYMPTOMS. Laboratory Tests 03/07/19 03/07/19 03/07/19 00:00 07:50 07:50 WBC 3.6 L RBC 3.85 L Hgb 12.3 Hct 36.8 MCV 95.7 MCH 32.0 MCHC 33.4 RDW 13.5 D Plt Count 152 D MPV 8.8 Sodium 145 Potassium 3.3 L Chloride 109 H Carbon Dioxide 30 Anion Gap 6 L BUN 10.6 Creatinine 1.1 Est GFR (CKD-EPI)AfAm 97.49 Est GFR (CKD-EPI)NonAf 84.12 Random Glucose 117 H Calcium 8.3 L Total Bilirubin 0.2 AST 18 ALT 21 Alkaline Phosphatase 55 Total Protein 5.6 L Albumin 3.1 L Urine Color Yellow Urine Appearance Turbid Urine pH 5.5 Ur Specific [place] 1.031 Urine Protein Negative Urine Glucose (UA) Negative Urine Ketones Trace H Urine Blood Negative Urine Nitrite Negative Urine Bilirubin Negative Urine Urobilinogen 0.2 Ur Leukocyte Esterase Negative RPR Titer T.pallidum Ab (A) 03/07/19 03/09/19 07:50 07:50 WBC RBC Hgb Hct MCV MCH MCHC RDW Plt Count MPV Sodium Potassium 4.0 Chloride Carbon Dioxide Anion Gap BUN Creatinine Est GFR (CKD-EPI)AfAm Est GFR (CKD-EPI)NonAf Random Glucose Calcium Total Bilirubin AST ALT Alkaline Phosphatase Total Protein Albumin Urine Color Urine Appearance Urine pH Ur Specific [place] Urine Protein Urine Glucose (UA) Urine Ketones Urine Blood Urine Nitrite Urine Bilirubin Urine Urobilinogen Ur Leukocyte Esterase RPR Titer Reactive 1:8 H T.pallidum Ab ([facility]) Previously reactive LABS NOTED. - Treatment Hospital Course: Detox Protocol Followed, Detoxed Safely, Responded well, Discharged Condition Good, Rehab Referral Accepted Patient has Accepted a Rehab Referral to: [facility] ([place], [place]). - Medication Discharge Medications: Ambulatory Orders Bupropion HCl [Wellbutrin -] 150 mg PO DAILY 03/06/19 Quetiapine Fumarate [Seroquel] 100 mg PO HS 03/06/19 Triumeq (Non-Formulary) 1 tablet PO DAILY 03/06/19 - Diagnosis (1) Alcohol dependence with uncomplicated withdrawal Status: Acute (2) Methamphetamine abuse Status: Acute (3) HIV disease Status: Chronic (4) Nicotine dependence Status: Chronic Qualifiers: Nicotine product type: cigarettes Substance use status: uncomplicated Qualified Code(s): F17.210 - Nicotine dependence, cigarettes, uncomplicated (5) Positive RPR test Status: Acute (6) Hypokalemia Status: Acute - AMA Did Patient Leave Against Medical Advice: No
[2019-03-10] MEDS ORDERED: chlordiazePOXIDE HCL 10 MG CAPSULE PO ONE (05:00)
== END 2019-03-09 11:35 | disposition home or self-care (01) | DRG 775 ==
LOC: YASAS 15:16 → Y3N 21:55
PROVIDERS: ADMIT Surgery; ATTEND Surgery
PROC: HZ2ZZZZ Detoxification Services for Substance Abuse Treatment (ICD-10-PCS; principal; 2019-03-06)
DX: F10.230 Alcohol dependence with withdrawal, uncomplicated (principal); F15.20 Other stimulant dependence, uncomplicated; F17.210 Nicotine dependence, cigarettes, uncomplicated; Z21 Asymptomatic human immunodeficiency virus [HIV] infection status; E87.6 Hypokalemia; D72.819 Decreased white blood cell count, unspecified; A53.0 Latent syphilis, unspecified as early or late; Z86.19 Personal history of other infectious and parasitic diseases
CPT/HCPCS: 36415; 80053; 81003; 84132; 85027; 86593; 86780

== ENCOUNTER 2019-09-06 11:36 | Inpatient (IN) | payer OTHER ==
[2019-09-06 12:32] VITALS: BMI 25.4
--- NOTE | 2019-09-06 15:00 | HP ---
CIWA Score Nausea/Vomitin-No Nausea/No Vomiting Muscle Tremors: 1-None Visible, but [place] Anxiety: 1-Mildly Anxious Agitation: 1-Slight > Activity Paroxysmal Sweats: No Perspiration Orientation: 0-Oriented Tacttile Disturbances: 0-None Auditory Disturbances: 0-None Visual Disturbances: 0-None Headache: 1-Very Mild CIWA-Ar Total Score: 4 - Admission Criteria OASAS Guidelines: Admission for Medically Managed Detox: Requires at least one of the followin. CIWA greater than 12 2. Seizures within the past 24 hours 3. Delirium tremens within the past 24 hours 4. Hallucinations within the past 24 hours 5. Acute intervention needed for co occurring medical disorder 6. Acute intervention needed for co occurring psychiatric disorder 7. Severe withdrawal that cannot be handled at a lower level of care (continued vomiting, continued diarrhea, abnormal vital signs) requiring intravenous medication and/or fluids 8. Admitting History and Physical - Admission Chief Complaint: i need help to come in for rehab from crystal meth History of Present Illness: this 38 years old male with crystal meth dependence,seeking rehab, History Source: Patient Limitations to Obtaining History: No Limitations - Past Medical History Infectious Disease: Yes: HIV Psych: Yes: Anxiety, Depression - Smoking History Smoking history: Current every day smoker Have you smoked in the past 12 months: Yes Aproximately how many cigarettes per day: 10 - Alcohol/Substance Use Hx Alcohol Use: Yes - Social History Usual Living Arrangement: Yes: With Significant Other Do you think of yourself as: German, Lesbian or Homosexual ADL: Support Services Occupation: unemployed History of Recent Travel: No Admission ROS S - HPI Chief Complaint: i need help to stop usiing crystal meth Allergies/Adverse Reactions: Allergies Allergy/AdvReac Type Severity Reaction Status Date / Time No Known Drug Allergies Allergy Verified 09/06/19 15:47 seafoood Allergy Severe Difficulty Uncoded 09/06/19 12:25 Breathing History of Present Illness: this 38 years old male with crystal meth dependence,seeking rehab,last treatment in 03/06/19 to 03/09/19 need rehab hiv since 2002 on med anxiety,depression had discharge from [facility] 2 days ago,has similar problem 2 moths ago anxiety,depression had male partner had history of syphilis treated 2017,also teated 4 months ago with more injection Exam Limitations: No Limitations - Ebola screening Have you traveled outside of the country in the last 21 days: No Have you had contact with anyone from an Ebola affected area: No Do you have a fever: No - Review of Systems Constitutional: Night Sweats EENT: reports: No Symptoms Reported Respiratory: reports: No Symptoms reported Cardiac: reports: No Symptoms Reported GI: reports: No Symptoms Reported : reports: No Symptoms Reported Musculoskeletal: reports: No Symptoms Reported Integumentary: reports: No Symptoms Reported Neuro: reports: No Symptoms reported Endocrine: reports: No Symptoms Reported Hematology: reports: Other (hiv) Psychiatric: reports: No Sypmtoms Reported, Judgement Intact, Mood/Affect Appropiate, Anxious, Depressed Patient History - Patient Medical History Hx Anemia: No Hx Asthma: No Hx Chronic Obstructive Pulmonary Disease (COPD): No Hx Cancer: No Hx Cardiac Disorders: No Hx Hypertension: No Hx Hypercholesterolemia: No Hx Pacemaker: No HX Cerebrovascular Accident: No Hx Seizures: No Hx Diabetes: No Hx Gastrointestinal Disorders: No Hx Liver Disease: No Hx Genitourinary Disorders: No Hx Sexually Transmitted Disorders: Yes (HIV since 2002) Hx Renal Disease (ESRD): No Hx Thyroid Disease: No Hx Human Immunodeficiency Virus (HIV): Yes (DIAGNOSED IN 2002) Hx Hepatitis C: No Hx Depression: Yes (anxiety) Hx Suicide Attempt: No Hx Bipolar Disorder: No Hx Schizophrenia: No Other Medical History: no suicidal,no homicidal - Patient Surgical History Past Surgical History: No Hx Neurologic Surgery: No Hx Cataract Extraction: No Hx Cardiac Surgery: No Hx Lung Surgery: No Hx Breast Surgery: No Hx Breast Biopsy: No Hx Abdominal Surgery: No Hx Appendectomy: No Hx Cholecystectomy: No Hx Genitourinary Surgery: No Hx Section: No Hx Orthopedic Surgery: No Anesthesia Reaction: No - PPD History Previous Implant?: Yes Documented Results: Negative w/proof Implanted On Prior [facility] Admission?: Yes Date: 03/08/19 Results: 0 mm PPD to be Administered?: No - Smoking Cessation Smoking history: Current every day smoker Have you smoked in the past 12 months: Yes Aproximately how many cigarettes per day: 10 Cigars Per Day: 0 Hx Chewing Tobacco Use: No Initiated information on smoking cessation: Yes 'Breaking Loose' booklet given: 09/06/19 - Substance & Tx. History Hx Alcohol Use: Yes Hx Substance Use: Yes Substance Use Type: Alcohol Hx Substance Use Treatment: Yes ([facility] 03/06/19 to 03/09/19) - Substances abused Alcohol Substance route: Oral Frequency: 1-3 times last 30 days Amount used: 1-2 nips of vodka Age of first use: 14 Date of last use: 08/16/19 Methamphetamine Other (specify): Crystal Substance route: Smoking Frequency: Daily Amount used: $300-400 Age of first use: 37 Date of last use: 09/04/[address] [facility] - Vital Signs Vital Signs: Vital Signs - 24 hr 09/06/19 12:24 Temperature 96.9 F L Pulse Rate 74 Respiratory 20 Rate Blood Pressure 100/68 - Physical General Appearance: Yes: Within Normal Limits HEENTM: Yes: Normal ENT Inspection, CORY, Pharynx Normal Respiratory: Yes: Within Normal Limits, Lungs Clear, Normal Breath Sounds Neck: Yes: Within Normal Limits, Supple, Trachea in good position Breast: Yes: Within Normal Limits Cardiology: Yes: Within Normal Limits, Regular Rhythm, Regular Rate, S1, S2 Abdominal: Yes: Within Normal Limits, Non Tender, Flat, Soft, Organomegaly Genitourinary: Yes: Within Normal Limits Back: Yes: Within Normal Limits Musculoskeletal: Yes: Within Normal Limits Extremities: Yes: Within Normal Limits, Normal Range of Motion Neurological: Yes: college counselor II-XII NML intact, Fully Oriented, Alert, Motor Strength 5/5 Integumentary: Yes: Within Normal Limits Lymphatic: Yes: Within Normal Limits - Addiitonal Findings: anal discharge for 2 days - Diagnostic (1) Methamphetamine dependence Current Visit: No Status: Acute (2) Positive RPR test Current Visit: No Status: Acute (3) Nicotine dependence Current Visit: No Status: Chronic Qualifiers: Nicotine product type: cigarettes Substance use status: uncomplicated Qualified Code(s): F17.210 - Nicotine dependence, cigarettes, uncomplicated (4) Alcohol use disorder Current Visit: Yes Status: Acute (5) History of syphilis Current Visit: Yes Status: Acute (6) Anal discharge Current Visit: Yes Status: Acute Cleared for Admission [facility] - Detox or Rehab Claeared for Rehab Admission: Yes Breathalyzer - Breathalyzer Breathalyzer: 0 Urine Drug Screen - Test Device Lot number: [id number] Expiration date: 04/04/21 - Control Is test valid?: Yes - Results Drug screen NEGATIVE: No Urine drug screen results: MET-Methamphetamine, AMP-Amphetamines Inpatient Rehab Admission - Rehab Decision to Admit Inpatient rehab admission?: Yes - Initial Determination Are CD services needed?: Yes Free of communicable disease: Yes Not in need of hospitalization: Yes - Rehab Admission Criteria Previous failed treatment: Yes Poor recovery environment: Yes Comorbidities: Yes Lacks judgement: No Patient is meeting Inpatient Rehab admission criteria:: Yes
[2019-09-06] MEDS ORDERED: MAGNESIUM CITRATE 300 ML BOTTLE PO PRN (15:22)
[2019-09-06] MEDS ORDERED: ACETAMINOPHEN 325 MG TABLET (FP) PO PRN (15:22)
[2019-09-06] MEDS ORDERED: IBUPROFEN 400 MG TABLET (FP) PO PRN (15:22)
[2019-09-06] MEDS ORDERED: LOPERAMIDE HCL 2 MG CAPSULE PO PRN (15:22)
[2019-09-06] MEDS ORDERED: guaiFENesin 200 MG/10 ML 10 ML UNIT-DOSE CUPS PO PRN (15:22)
[2019-09-06] MEDS ORDERED: hydrOXYzine PAMOATE 50 MG CAPSULE (FP) PO PRN (15:22)
[2019-09-06] MEDS ORDERED: MAGNESIUM HYDROX 2400MG/30ML ORAL SUSPENSION 30 ML CUP PO PRN (15:22)
[2019-09-06] MEDS ORDERED: P-EPHED 60MG/TRIPROLIDI 2.5MG TABLET PO PRN (15:22)
[2019-09-06] MEDS ORDERED: PENICILLIN G BENZATHINE 2,400,000 UNIT/4 ML PFS IM ONE (15:26)
[2019-09-06 17:51] LABS: HEMOGLOBIN 13.9 GM/dL (11.7-16.9); MCHC 33.1 g/dl (32.0-35.9); MEAN CELL VOLUME 96.5 fl (80-96); MEAN PLT VOLUME 8.8 fl (7.5-11.1); PLATELET COUNT 226 K/MM3 (134-434); RBC 4.35 M/mm3 (4.00-5.60); RDW 14.4 % (11.9-15.9); WHITE BLOOD COUNT 3.8 K/mm3 (4.0-10.0)
[2019-09-06] MEDS ORDERED: LIDOCAINE HCL 1%, 10 MG/ML (50 mL VIAL) SQ ONE (18:00)
[2019-09-06] MEDS ORDERED: AZITHROMYCIN 500 MG TABLET PO ONE (18:00)
[2019-09-06] MEDS ORDERED: LIDOCAINE HCL 1%, 10 MG/ML (50 mL VIAL) NR ONE (18:00)
[2019-09-06 18:07] LABS: ALBUMIN 3.6 g/dl (3.4-5.0); BILIRUBIN,TOTAL 0.2 mg/dL (0.2-1); BLOOD UREA NITROGEN 16.4 mg/dL (7-18); CALCIUM 9.4 mg/dL (8.5-10.1); CREATININE 1.2 mg/dL (0.55-1.3); POTASSIUM 4.6 mmol/L (3.5-5.1)
[2019-09-06] MEDS: THIAMINE HCL 100 MG TABLET (FP) PO SCH (21:35)
[2019-09-07 07:46] LABS: RPR REACTIVE 1:4 (NONREACTIVE)
[2019-09-07 07:47] LABS: TREPONEMA ANTIBODY PREVIOUSLY REACTIVE (NONREACTIVE)
[2019-09-07] MEDS: PRENATAL VITAMINS W/ FOLIC ACID TABLET (FP) PO SCH (10:06)
--- NOTE | 2019-09-07 10:55 | PN ---
[facility] Progress Note Note: Pt is a 38 y/o male with a hx of alcohol and crystal meth use disorder admitted to rehab from [facility]. Pt reports hx of HIV+ and syphilis with treatment episodes. Pt reports he has own primary care provider Dr. Ketty Cruz at [facility]/ [place], [place] for medical management. Vital Signs - 24 hr 09/06/19 09/06/19 09/07/19 12:24 15:50 00:56 Temperature 96.9 F L 97.3 F L Pulse Rate 74 64 Respiratory 20 18 18 Rate Blood Pressure 100/68 113/69 09/07/19 09/07/19 03:30 06:54 Temperature 97.7 F Pulse Rate 86 Respiratory 18 18 Rate Blood Pressure 110/72 Laboratory Tests 09/06/19 09/06/19 09/06/19 15:17 15:17 15:17 WBC 3.8 L RBC 4.35 Hgb 13.9 Hct 42.0 MCV 96.5 H MCH 32.0 MCHC 33.1 RDW 14.4 Plt Count 226 D MPV 8.8 Sodium 138 Potassium 4.6 Chloride 105 Carbon Dioxide 30 Anion Gap 3 L BUN 16.4 Creatinine 1.2 Est GFR (CKD-EPI)AfAm 87.75 Est GFR (CKD-EPI)NonAf 75.72 Random Glucose 94 Calcium 9.4 Total Bilirubin 0.2 AST 36 ALT 33 Alkaline Phosphatase 61 Total Protein 7.0 Albumin 3.6 RPR Titer Reactive 1:4 H D T.pallidum Ab ([facility]) Previously reactive labs noted. Reviewed serology:03/07/19=1:8 and 09/06/19 = 1:4 Decreasing titer However,pt declined booster dose today(see addendum below) Alert o x3 nad A/P new rehab pt Maintain safety D/w admitting MD, pt was treated for anal discharge with Zithromax 1000 mg po x 1 and Rocephin 250 mg I.M x 1 on admission. Labs and meds reviewed. Pt is still awaiting his Triumeq medication to be delivered from home to restart. However, discussed with Heena Calderon [facility] pharmacist and pt will be ordered from hospital supply to avoid missed doses. Addendum: As per Admission notes-- History of Present Illness: this 38 years old male with crystal meth dependence,seeking rehab,last treatment in 03/06/19 to 03/09/19 need rehab hiv since 2002 on med anxiety,depression had discharge from [facility] 2 days ago,has similar problem 2 moths ago anxiety,depression had male partner had history of syphilis treated 2017,also teated 4 months ago with more injection
--- NOTE | 2019-09-07 12:44 | CONSULT ---
[facility] Psychiatric Consult - Data Date of interview: 09/07/19 Admission source: Self-referred Identifying data: Mr Moreland is a 38 years old single Black male, unemployed receiving public assistance, domiciled admitted to this unit on 09/06/19 for inpatient rehabilitation for alcohol and methamphetamine Substance Abuse History: Reports history of alcohol and crystal meth use. Refer to addiction counselor for further information. Medical History: Significant for HIV infection since 2002 and history of treatment for syphilis. Smokes 10 cigarettes daily. Psychiatric History: Reports that his first psychiatric contact occured in 2018 when he saw a psychiatrist as an outpatient at [facility], diagnosed with MDD and started on Wellbutrin and Seroquel. Reports that he still sees psychiatrist at same institution and he is currently on Wellbutrin XL 150 mg/ day and Remeron 7.5 mg/hs. Denies previous psychiatric hospitalization or suicidal atempt. At present, repors feeling mildly depressed and sleeping poorly Physical/Sexual Abuse/Trauma History: Denies history of abuse as a child or DV relationship as an adult Mental Status Exam - Mental Status Exam Alert and Oriented to: Time, Place, Person Cognitive Function: Fair Patient Appearance: Disheveled Mood: Depressed (mildly) Affect: Appropriate Patient Behavior: Cooperative Speech Pattern: Clear Voice Loudness: Normal Thought Process: Intact, Goal Oriented Hallucinations: Denies Suicidal Ideation: Denies Homicidal Ideation: Denies Insight/Judgement: Fair Sleep: Poorly Appetite: Good Muscle strength/Tone: Normal Gait/Station: Normal Psychiatric Findings - Problem List ([place] 1, 2,3) (1) Depressive disorder Current Visit: Yes Status: Chronic (2) MDD (major depressive disorder) Current Visit: Yes Status: Ruled-out (3) Substance induced mood disorder Current Visit: Yes Status: Acute (4) Substance-induced sleep disorder Current Visit: Yes Status: Acute (5) Methamphetamine dependence Current Visit: No Status: Acute (6) Alcohol abuse Current Visit: Yes Status: Acute (7) Nicotine dependence Current Visit: No Status: Chronic Qualifiers: Nicotine product type: cigarettes Substance use status: uncomplicated Qualified Code(s): F17.210 - Nicotine dependence, cigarettes, uncomplicated (8) HIV disease Current Visit: No Status: Chronic (9) Syphilis contact, treated Current Visit: No Status: Acute - Initial Treatment Plan Initial Treatment Plan: 1) Continue Wellbutrin XL 150 mg po daily and Remeron 7.5 mg po HS. 2) Continue inpatient rehabilitation
[2019-09-07] MEDS: ABACAVIR/DOLUTEGRAVIR/LAMIVUDI (TRIUMEQ) TABLET -NF PO SCH (14:38)
--- NOTE | 2019-09-07 15:26 | PN ---
[facility] Progress Note Note: patient received azithromycin 1000 mgs po and rocephin 250 mgs in mixed with lidocaine IM on 09/06/19, for anal discharge ,receiived same treatment by his pmd 2 months ago for gonorrhea
[2019-09-07 17:50] LABS: PH,URINE 7.5 (5.0-8.0); URINE APPEARANCE CLEAR; URINE BILIRUBIN NEGATIVE (NEGATIVE); URINE COLOR YELLOW; URINE GLUCOSE (UA) NEGATIVE (NEGATIVE); URINE KETONE NEGATIVE (NEGATIVE); URINE LEUK ESTERASE NEGATIVE (NEGATIVE); URINE NITRITE NEGATIVE (NEGATIVE); URINE PROTEIN NEGATIVE (NEGATIVE)
[2019-09-07] MEDS: THIAMINE HCL 100 MG TABLET (FP) PO SCH (21:57)
[2019-09-07] MEDS: MIRTAZAPINE 15 MG TABLET (FP) PO SCH (21:57)
[2019-09-08] MEDS: PRENATAL VITAMINS W/ FOLIC ACID TABLET (FP) PO SCH (12:09)
[2019-09-08] MEDS: ABACAVIR/DOLUTEGRAVIR/LAMIVUDI (TRIUMEQ) TABLET -NF PO SCH (12:09)
[2019-09-08] MEDS: MELATONIN 5 MG TABLETS PO PRN (21:27)
[2019-09-08] MEDS: MIRTAZAPINE 15 MG TABLET (FP) PO SCH (21:27)
[2019-09-08] MEDS: THIAMINE HCL 100 MG TABLET (FP) PO SCH (21:28)
[2019-09-09] MEDS: ABACAVIR/DOLUTEGRAVIR/LAMIVUDI (TRIUMEQ) TABLET -NF PO SCH (10:44)
[2019-09-09] MEDS: PRENATAL VITAMINS W/ FOLIC ACID TABLET (FP) PO SCH (10:44)
[2019-09-09] MEDS: MIRTAZAPINE 15 MG TABLET (FP) PO SCH (21:30)
[2019-09-09] MEDS: MELATONIN 5 MG TABLETS PO PRN (21:30)
[2019-09-09] MEDS: THIAMINE HCL 100 MG TABLET (FP) PO SCH (21:30)
[2019-09-10] MEDS: PRENATAL VITAMINS W/ FOLIC ACID TABLET (FP) PO SCH (10:29)
[2019-09-10] MEDS: ABACAVIR/DOLUTEGRAVIR/LAMIVUDI (TRIUMEQ) TABLET -NF PO SCH (10:29)
[2019-09-10] MEDS: THIAMINE HCL 100 MG TABLET (FP) PO SCH (21:56)
[2019-09-10] MEDS: MIRTAZAPINE 15 MG TABLET (FP) PO SCH (21:57)
[2019-09-10] MEDS: MELATONIN 5 MG TABLETS PO PRN (21:57)
[2019-09-10] MEDS: MAG HYDROX/AL HYDROX/SIMETH 30 ML UNIT-DOSE CUP PO PRN (21:58)
[2019-09-11] MEDS: ABACAVIR/DOLUTEGRAVIR/LAMIVUDI (TRIUMEQ) TABLET -NF PO SCH (10:37)
[2019-09-11] MEDS: PRENATAL VITAMINS W/ FOLIC ACID TABLET (FP) PO SCH (10:37)
[2019-09-11] MEDS: MIRTAZAPINE 15 MG TABLET (FP) PO SCH (21:50)
[2019-09-11] MEDS: THIAMINE HCL 100 MG TABLET (FP) PO SCH (21:50)
[2019-09-11] MEDS: MELATONIN 5 MG TABLETS PO PRN (21:50)
[2019-09-11] MEDS: MAG HYDROX/AL HYDROX/SIMETH 30 ML UNIT-DOSE CUP PO PRN (21:51)
[2019-09-12] MEDS: PRENATAL VITAMINS W/ FOLIC ACID TABLET (FP) PO SCH (10:50)
[2019-09-12] MEDS: ABACAVIR/DOLUTEGRAVIR/LAMIVUDI (TRIUMEQ) TABLET -NF PO SCH (10:50)
[2019-09-12] MEDS: MENTHOL/PHENOL 1 EACH UD MM PRN (10:52)
[2019-09-12] MEDS: MAG HYDROX/AL HYDROX/SIMETH 30 ML UNIT-DOSE CUP PO PRN ×2 (10:52→21:58)
[2019-09-12] MEDS: MIRTAZAPINE 15 MG TABLET (FP) PO SCH (21:56)
[2019-09-12] MEDS: MELATONIN 5 MG TABLETS PO PRN (21:56)
[2019-09-12] MEDS: THIAMINE HCL 100 MG TABLET (FP) PO SCH (21:56)
[2019-09-13] MEDS: PANTOPRAZOLE 40 MG TABLET (FP) PO SCH (07:07)
[2019-09-13] MEDS ORDERED: PENICILLIN G BENZATHINE 2,400,000 UNIT/4 ML PFS IM ONE (09:44)
[2019-09-13] MEDS: PRENATAL VITAMINS W/ FOLIC ACID TABLET (FP) PO SCH (10:36)
[2019-09-13] MEDS: MIRTAZAPINE 15 MG TABLET (FP) PO SCH (21:42)
[2019-09-13] MEDS: THIAMINE HCL 100 MG TABLET (FP) PO SCH (21:43)
[2019-09-13] MEDS: MELATONIN 5 MG TABLETS PO PRN (21:43)
[2019-09-13] MEDS: MAG HYDROX/AL HYDROX/SIMETH 30 ML UNIT-DOSE CUP PO PRN (21:44)
[2019-09-13] MEDS: ABACAVIR/DOLUTEGRAVIR/LAMIVUDI (TRIUMEQ) TABLET -NF PO SCH (21:44)
[2019-09-14] MEDS: PANTOPRAZOLE 40 MG TABLET (FP) PO SCH (07:09)
[2019-09-14] MEDS: PRENATAL VITAMINS W/ FOLIC ACID TABLET (FP) PO SCH (10:46)
[2019-09-14] MEDS: MAG HYDROX/AL HYDROX/SIMETH 30 ML UNIT-DOSE CUP PO PRN (11:11)
[2019-09-14] MEDS: MIRTAZAPINE 15 MG TABLET (FP) PO SCH (21:50)
[2019-09-14] MEDS: THIAMINE HCL 100 MG TABLET (FP) PO SCH (21:50)
[2019-09-14] MEDS: MELATONIN 5 MG TABLETS PO PRN (21:51)
[2019-09-14] MEDS: ABACAVIR/DOLUTEGRAVIR/LAMIVUDI (TRIUMEQ) TABLET -NF PO SCH ×2 (21:51)
[2019-09-15] MEDS: PANTOPRAZOLE 40 MG TABLET (FP) PO SCH (08:16)
[2019-09-15] MEDS: PRENATAL VITAMINS W/ FOLIC ACID TABLET (FP) PO SCH (10:38)
[2019-09-15] MEDS: MIRTAZAPINE 15 MG TABLET (FP) PO SCH (21:49)
[2019-09-15] MEDS: THIAMINE HCL 100 MG TABLET (FP) PO SCH (21:49)
[2019-09-15] MEDS: ABACAVIR/DOLUTEGRAVIR/LAMIVUDI (TRIUMEQ) TABLET -NF PO SCH (21:51)
[2019-09-15] MEDS: MAG HYDROX/AL HYDROX/SIMETH 30 ML UNIT-DOSE CUP PO PRN (21:51)
[2019-09-16] MEDS: PANTOPRAZOLE 40 MG TABLET (FP) PO SCH (07:06)
[2019-09-16] MEDS: PRENATAL VITAMINS W/ FOLIC ACID TABLET (FP) PO SCH (10:21)
[2019-09-16] MEDS: ABACAVIR/DOLUTEGRAVIR/LAMIVUDI (TRIUMEQ) TABLET -NF PO SCH (21:50)
[2019-09-16] MEDS: MIRTAZAPINE 15 MG TABLET (FP) PO SCH (21:50)
[2019-09-16] MEDS: THIAMINE HCL 100 MG TABLET (FP) PO SCH (21:51)
[2019-09-16] MEDS: MELATONIN 5 MG TABLETS PO PRN (21:51)
[2019-09-17] MEDS: PANTOPRAZOLE 40 MG TABLET (FP) PO SCH (06:48)
[2019-09-17] MEDS: MENTHOL/PHENOL 1 EACH UD MM PRN ×2 (07:49→14:37)
[2019-09-17] MEDS: PRENATAL VITAMINS W/ FOLIC ACID TABLET (FP) PO SCH (11:24)
[2019-09-17] MEDS: MAG HYDROX/AL HYDROX/SIMETH 30 ML UNIT-DOSE CUP PO PRN (18:53)
[2019-09-17] MEDS: THIAMINE HCL 100 MG TABLET (FP) PO SCH (21:41)
[2019-09-17] MEDS: ABACAVIR/DOLUTEGRAVIR/LAMIVUDI (TRIUMEQ) TABLET -NF PO SCH (21:41)
[2019-09-17] MEDS: MELATONIN 5 MG TABLETS PO PRN (21:42)
[2019-09-17] MEDS: MIRTAZAPINE 15 MG TABLET (FP) PO SCH (21:42)
[2019-09-18] MEDS: PANTOPRAZOLE 40 MG TABLET (FP) PO SCH (06:29)
[2019-09-18 06:59] VITALS: PULSE 55; TEMP 97.4
[2019-09-18] MEDS: PRENATAL VITAMINS W/ FOLIC ACID TABLET (FP) PO SCH (10:41)
--- NOTE | 2019-09-18 10:45 | DS ---
[facility] Rehab Discharge Summary - [facility] Rehab Discharge Summary Admission Date: 09/06/19 Discharge Date: 09/19/19 - History Present History: Alcohol dependence, Cannabis dependence, Cocaine dependence ( reports he has not used cocaine since over a year now.) Additional Comments: Pt is a 38 y/o male with a hx of JOSEFINA admitted to rehab and scheduled to discharge on 09/19/19 after completion of stay. Pertinent Past History: HIV+ Syphilis Infection - Discharge Physical Exam Vital Signs: Vital Signs Temperature 97.4 F L 09/18/19 06:58 Pulse Rate 55 L 09/18/19 06:58 Respiratory Rate 18 09/18/19 06:58 Blood Pressure 123/77 09/18/19 06:58 O2 Sat by Pulse Oximetry (%) Alert o x 3,denies s/h/i nad oob ambulating with steady gait cardiac:s1 s2,rrr lungs;cta,[place]. abdomen;+bs,soft,flat,nt extremities/skin:no edema;skin intact. Pertinent Admission Physical Exam Findings: Laboratory Tests 09/06/19 09/06/19 09/06/19 15:17 15:17 15:17 WBC 3.8 L RBC 4.35 Hgb 13.9 Hct 42.0 MCV 96.5 H MCH 32.0 MCHC 33.1 RDW 14.4 Plt Count 226 D MPV 8.8 Sodium 138 Potassium 4.6 Chloride 105 Carbon Dioxide 30 Anion Gap 3 L BUN 16.4 Creatinine 1.2 Est GFR (CKD-EPI)AfAm 87.75 Est GFR (CKD-EPI)NonAf 75.72 Random Glucose 94 Calcium 9.4 Total Bilirubin 0.2 AST 36 ALT 33 Alkaline Phosphatase 61 Total Protein 7.0 Albumin 3.6 Urine Color Urine Appearance Urine pH Ur Specific [place] Urine Protein Urine Glucose (UA) Urine Ketones Urine Blood Urine Nitrite Urine Bilirubin Urine Urobilinogen Ur Leukocyte Esterase RPR Titer Reactive 1:4 H D T.pallidum Ab (MHA) Previously reactive 09/07/19 13:30 WBC RBC Hgb Hct MCV MCH MCHC RDW Plt Count MPV Sodium Potassium Chloride Carbon Dioxide Anion Gap BUN Creatinine Est GFR (CKD-EPI)AfAm Est GFR (CKD-EPI)NonAf Random Glucose Calcium Total Bilirubin AST ALT Alkaline Phosphatase Total Protein Albumin Urine Color Yellow Urine Appearance Clear Urine pH 7.5 D Ur Specific [place] 1.018 Urine Protein Negative Urine Glucose (UA) Negative Urine Ketones Negative Urine Blood Negative Urine Nitrite Negative Urine Bilirubin Negative Urine Urobilinogen 1.0 Ur Leukocyte Esterase Negative RPR Titer T.pallidum Ab (MHA) Anal Discharge on admission and treated with double antibiotics. Syphilis Titer 1:4 and received x1 booster dose of Bicillin 2.4 mil unit. - Treatment Discharge Condition: Discharge condition good Hospital Course: Rehabilitated safely - Medication Discharge Medications: Ambulatory Orders Bupropion HCl [Wellbutrin -] 150 mg PO DAILY 03/06/19 Abacavir/Dolutegravir/Lamivudi [Triumeq (Non-Formulary)] 1 each PO DAILY Bupropion HCl [Wellbutrin Xl -] 150 mg PO DAILY #30 tab.sr.24h 09/18/19 Mirtazapine [Remeron -] 7.5 mg PO DAILY #14 tablet 09/18/19 - Medication-Assisted Treatment (MAT) Medication-Assisted Treatment (MAT): No - Discharge Instructions Diet, activity, other medical instructions: Diet:regular Activity:oob ad jenn Other medical instructions:follow up with PCP Ketty Rob at [facility] as scheduled for medical management. follow up with CD aftercare @ [facility] as recommendation as scheduled. - Diagnosis (1) Alcohol use disorder Current Visit: Yes Status: Chronic (2) Anal discharge Current Visit: Yes Status: Resolved (3) History of syphilis Current Visit: Yes Status: Chronic (4) Cannabis dependence Current Visit: Yes Status: Chronic (5) Cocaine dependence Current Visit: Yes Status: Chronic Qualifiers: Substance use status: uncomplicated Qualified Code(s): F14.20 - Cocaine dependence, uncomplicated (6) HIV disease Current Visit: Yes Status: Chronic (7) Nicotine dependence Current Visit: Yes Status: Chronic Qualifiers: Nicotine product type: cigarettes Substance use status: uncomplicated Qualified Code(s): F17.210 - Nicotine dependence, cigarettes, uncomplicated - Follow-up Referral Minutes to complete discharge: 20 - AMA Did Patient Leave Against Medical Advice: No Additional Comments: Pt states he has on Triumeq at home. No need for courtesy Rx this admission. pt made appointment with his PCP Dr. Cruz for medical follow up and knows the [id number] he wrote it in his notebook).
--- NOTE | 2019-09-18 11:54 | PN ---
[facility] Progress Note Note: Patient is scheduled for discharge tomorrow. Scripts for 30 days supply of medications(Wellbutrin Xl 150 mg/day, Remeron 7.5 mg/hs) will be electronically transmitted to [facility] at [address], [place] [address]
[2019-09-18] MEDS: MELATONIN 5 MG TABLETS PO PRN (21:49)
[2019-09-18] MEDS: ABACAVIR/DOLUTEGRAVIR/LAMIVUDI (TRIUMEQ) TABLET -NF PO SCH (21:50)
[2019-09-18] MEDS: THIAMINE HCL 100 MG TABLET (FP) PO SCH (21:50)
[2019-09-18] MEDS: MIRTAZAPINE 15 MG TABLET (FP) PO SCH (21:50)
[2019-09-18] MEDS: MENTHOL/PHENOL 1 EACH UD MM PRN (22:56)
[2019-09-19] MEDS: PANTOPRAZOLE 40 MG TABLET (FP) PO SCH (06:53)
[2019-09-19 06:59] VITALS: BP 134/90
[2019-09-19] MEDS: MENTHOL/PHENOL 1 EACH UD MM PRN (07:09)
[2019-09-19] MEDS: PRENATAL VITAMINS W/ FOLIC ACID TABLET (FP) PO SCH (11:17)
--- NOTE | 2019-09-19 16:58 | PN ---
S Progress Note Note: Pt was discharged today as scheduled. Vital Signs - 24 hr 09/19/19 09/19/19 00:30 06:58 Temperature 97.4 F L Pulse Rate 55 L Respiratory 18 18 Rate Blood Pressure 134/90 Alert o x 3 nad oob ambulating with steady gait. A/P Medically stable D/C pt today. follow up with PCP for medical management follow up with CD aftercare as recommended.
== END 2019-09-19 13:15 | disposition home or self-care (01) | DRG 772 ==
LOC: YASAS 11:36 → Y3N 15:19 → Y5N 15:29
PROVIDERS: ADMIT Neuromusculoskeletal Medicine & OMM; ATTEND Neuromusculoskeletal Medicine & OMM
PROC: HZ42ZZZ Group Counseling for Substance Abuse Treatment, Cognitive-Behavioral (ICD-10-PCS; principal; 2019-09-06)
DX: F15.20 Other stimulant dependence, uncomplicated (principal); F10.10 Alcohol abuse, uncomplicated; F14.20 Cocaine dependence, uncomplicated; F17.210 Nicotine dependence, cigarettes, uncomplicated; F32.9 Major depressive disorder, single episode, unspecified; F19.24 Other psychoactive substance dependence with psychoactive substance-induced mood disorder; F19.282 Other psychoactive substance dependence with psychoactive substance-induced sleep disorder; K62.89 Other specified diseases of anus and rectum; Z21 Asymptomatic human immunodeficiency virus [HIV] infection status; R76.11 Nonspecific reaction to tuberculin skin test without active tuberculosis; Z87.438 Personal history of other diseases of male genital organs; Z91.013 Allergy to seafood
CPT/HCPCS: 36415; 80053; 81003; 85027; 86593; 86780

== ENCOUNTER 2022-12-04 13:53 | Inpatient (IN) | payer OTHER ==
[2022-12-04 19:18] VITALS: BMI 25.7
[2022-12-04] MEDS ORDERED: IBUPROFEN 400 MG TABLET (FP) PO PRN (20:45)
[2022-12-04] MEDS ORDERED: BENZONATATE 200 MG CAPSULE PO PRN (20:45)
[2022-12-04] MEDS ORDERED: NALOXONE HCL 0.4 MG/ML VIAL IM PRN (20:45)
[2022-12-04] MEDS ORDERED: LOPERAMIDE HCL 2 MG CAPSULE PO PRN (20:45)
[2022-12-04] MEDS ORDERED: NICOTINE POLACRILEX 2 MG GUM BUC PRN (20:45)
[2022-12-04] MEDS ORDERED: BENZOCAINE/MENTHOL (CHLORASEPTIC ) LOZENGE MM PRN (20:45)
[2022-12-04] MEDS ORDERED: POLYETHYLENE GLYCOL (HEALTHYLAX) 3350 17 GM PACKET PO PRN (20:45)
[2022-12-04] MEDS ORDERED: ACETAMINOPHEN 325 MG TABLET (FP) PO PRN (20:45)
[2022-12-04] MEDS ORDERED: MAG HYDROX/AL HYDROX/SIMETH 30 ML UNIT-DOSE CUP PO PRN (20:45)
[2022-12-04] MEDS ORDERED: BISMUTH SUBSALICYLATE 524 MG/30 ML PO PRN (20:45)
[2022-12-04] MEDS ORDERED: ONDANSETRON *ODT* 4 MG TABLET SL PRN (20:45)
[2022-12-04] MEDS ORDERED: IBUPROFEN 600 MG TABLET (FP) PO PRN (20:45)
[2022-12-04] MEDS ORDERED: MAGNESIUM HYDROX 2400MG/30ML ORAL SUSPENSION 30 ML CUP PO PRN (20:45)
[2022-12-04] MEDS ORDERED: NALOXONE HCL (KLOXXADO) 8 MG SPRAY NS PRN (20:45)
[2022-12-04] MEDS ORDERED: guaiFENesin 600 MG TABLET.ER (FP) PO PRN (20:45)
[2022-12-04] MEDS ORDERED: chlordiazePOXIDE HCL 25 MG CAPSULE PO PRN ×2 (20:45→21:19)
[2022-12-04] MEDS ORDERED: DICYCLOMINE HCL 10 MG CAPSULE PO PRN (20:45)
[2022-12-04] MEDS: chlordiazePOXIDE HCL 25 MG CAPSULE PO SCH ×4 (22:17→23:32)
[2022-12-04] MEDS: MELATONIN 5 MG TABLETS PO SCH (22:17)
[2022-12-04] MEDS: THIAMINE HCL 100 MG TABLET (FP) PO SCH (22:17)
[2022-12-05] MEDS ORDERED: chlordiazePOXIDE HCL 25 MG CAPSULE PO SCH ×2 (05:00→11:00)
[2022-12-05] MEDS: chlordiazePOXIDE HCL 25 MG CAPSULE PO SCH (05:53)
[2022-12-05] MEDS: PRENATAL VITAMINS W/ FOLIC ACID TABLET (FP) PO SCH (10:49)
[2022-12-05] MEDS: NICOTINE 21 MG/24 HOURS TOPICAL PATCH TD SCH (10:49)
[2022-12-05 11:48] LABS: HEMATOCRIT 37.9 % (35.4-49); HEMOGLOBIN 13.1 GM/dL (11.7-16.9); MCH 30.9 pg (25.7-33.7); MCHC 34.5 g/dl (32.0-35.9); MEAN CELL VOLUME 89.4 fl (80-96); MEAN PLT VOLUME 8.7 fl (7.5-11.1); PLATELET COUNT 169 10^3/uL (134-434); RBC 4.24 M/mm3 (4.00-5.60); RDW 14.5 % (11.9-15.9); WHITE BLOOD COUNT 3.9 K/mm3 (4.0-10.0)
[2022-12-05 12:00] LABS: CALCIUM 8.7 mg/dL (8.5-10.1)
[2022-12-05 12:01] LABS: BLOOD UREA NITROGEN 10.5 mg/dL (7-18)
[2022-12-05 12:02] LABS: ALBUMIN 3.1 g/dl (3.4-5.0)
[2022-12-05 12:04] LABS: CREATININE 1.1 mg/dL (0.55-1.3)
[2022-12-05 12:05] LABS: BILIRUBIN,TOTAL 0.3 mg/dL (0.2-1); TOT PROT 6.7 g/dl (6.4-8.2)
[2022-12-05] MEDS: LORazepam 0.5 MG TABLET PO SCH ×2 (17:37→22:34)
[2022-12-05] MEDS: THIAMINE HCL 100 MG TABLET (FP) PO SCH (22:32)
[2022-12-05] MEDS: MELATONIN 5 MG TABLETS PO SCH (22:32)
[2022-12-06] MEDS ORDERED: chlordiazePOXIDE HCL 10 MG CAPSULE PO PRN
[2022-12-06] MEDS ORDERED: chlordiazePOXIDE HCL 25 MG CAPSULE PO SCH (05:00)
[2022-12-06] MEDS ORDERED: chlordiazePOXIDE HCL 10 MG CAPSULE PO SCH (05:00)
[2022-12-06] MEDS: LORazepam 0.5 MG TABLET PO SCH ×4 (05:50→23:26)
[2022-12-06] MEDS: NICOTINE 21 MG/24 HOURS TOPICAL PATCH TD SCH (10:40)
[2022-12-06] MEDS: PRENATAL VITAMINS W/ FOLIC ACID TABLET (FP) PO SCH (10:40)
[2022-12-06] MEDS: MELATONIN 5 MG TABLETS PO SCH (23:26)
[2022-12-06] MEDS: THIAMINE HCL 100 MG TABLET (FP) PO SCH (23:26)
[2022-12-07] MEDS ORDERED: chlordiazePOXIDE HCL 10 MG CAPSULE PO PRN
[2022-12-07] MEDS ORDERED: chlordiazePOXIDE HCL 10 MG CAPSULE PO SCH ×2 (05:00)
[2022-12-07] MEDS: LORazepam 0.5 MG TABLET PO SCH ×3 (05:45→22:55)
[2022-12-07] MEDS: NICOTINE 21 MG/24 HOURS TOPICAL PATCH TD SCH (10:06)
[2022-12-07] MEDS: PRENATAL VITAMINS W/ FOLIC ACID TABLET (FP) PO SCH (10:06)
[2022-12-07] MEDS ORDERED: NICOTINE 10 MG CARTRIDGE (INHALER) IH PRN (12:51)
[2022-12-07 21:46] VITALS: BP 116/75; PULSE 80; RESP 17; TEMP 96.8
[2022-12-07] MEDS: THIAMINE HCL 100 MG TABLET (FP) PO SCH (23:00)
[2022-12-07] MEDS: MELATONIN 5 MG TABLETS PO SCH (23:02)
[2022-12-08] MEDS ORDERED: chlordiazePOXIDE HCL 10 MG CAPSULE PO SCH (05:00)
[2022-12-08] MEDS ORDERED: chlordiazePOXIDE HCL 10 MG CAPSULE PO ONE (05:00)
[2022-12-08] MEDS ORDERED: LORazepam 0.5 MG TABLET PO SCH (06:00)
[2022-12-08] MEDS: NICOTINE 21 MG/24 HOURS TOPICAL PATCH TD SCH (10:19)
[2022-12-08] MEDS: PRENATAL VITAMINS W/ FOLIC ACID TABLET (FP) PO SCH (10:19)
[2022-12-09] MEDS ORDERED: chlordiazePOXIDE HCL 10 MG CAPSULE PO ONE (05:00)
[2022-12-09] MEDS ORDERED: LORazepam 0.5 MG TABLET PO ONE (06:00)
== END 2022-12-08 12:47 | disposition home or self-care (01) | DRG 897 ==
LOC: YASAS 13:53 → Y6N 21:45
PROVIDERS: ADMIT Allergy & Immunology; ATTEND Surgery
PROC: HZ2ZZZZ Detoxification Services for Substance Abuse Treatment (ICD-10-PCS; principal; 2022-12-04)
DX: F10.230 Alcohol dependence with withdrawal, uncomplicated (principal); F15.20 Other stimulant dependence, uncomplicated; B20 Human immunodeficiency virus [HIV] disease; F17.210 Nicotine dependence, cigarettes, uncomplicated; F19.24 Other psychoactive substance dependence with psychoactive substance-induced mood disorder; R76.8 Other specified abnormal immunological findings in serum; Z79.899 Other long term (current) drug therapy; Z86.19 Personal history of other infectious and parasitic diseases
CPT/HCPCS: 36415; 80053; 85027; 86593; 86780; 87811; 93005; 93010; C9803-CS; Q0162; U0003; U0005